=== PATIENT | female | born 1950 | race Caucasian/White ===

== ENCOUNTER 2017-10-01 21:19 | Emergency (ER) | payer MEDICARE, BC ==
[2017-10-01] MEDS ORDERED: ONDANSETRON HCL INJ/PF 4 MG/2 ML SDV IV ONE (23:39)
[2017-10-01] MEDS ORDERED: MORPHINE SULFATE 10 MG/ML INJ IV ONE (23:39)
--- NOTE | 2017-10-01 23:44 | ER Document Report ---
ED Neck/Back Problem - General Chief Complaint: Back Pain Stated Complaint: FALL/BACK PAIN Time Seen by Provider: 10/01/17 23:18 Mode of Arrival: Ambulatory Information source: Patient TRAVEL OUTSIDE OF THE [place] IN LAST 30 DAYS: No - HPI Patient complains to provider of: Pain, Lower back Onset: Just prior to arrival Where: Indoors Notes: The patient is here with complaints of right upper and lower back pain as well as lumbar pain. Patient states that she was in a shower in a hotel in [facility] while traveling down here to [place] to visit her daughter this morning. When she turned to grab her shampoo she lost her footing and fell out of the shower hitting her right side on the toilet and then falling to the floor. She denies striking her head. She denies any loss of consciousness. She is not on blood thinners. She is complaining of right upper and lower back pain. She denies any numbness, tingling, weakness to the lower extremities. She denies any bowel or bladder dysfunction. She is not on blood thinning medications. She denies any blurred or loss vision. She denies any abdominal pain. She denies any nausea, vomiting, diarrhea. Pain is worse with any sort of movement. She has difficulty finding a comfortable position due to her back pain. She denies seeing any blood in her urine. She has no other complaints or other injuries at this time. Past Medical History - Social History Smoking Status: Unknown if Ever Smoked Family History: Reviewed & Not Pertinent Patient has suicidal ideation: No Patient has homicidal ideation: No Renal/ Medical History: Denies: Hx Peritoneal Dialysis Review of Systems - Review of Systems -: Yes All other systems reviewed and negative Physical Exam - Vital signs Vitals: Temp Pulse Resp BP Pulse Ox 97.7 F 80 16 130/66 H 97 10/01/17 21:30 10/01/17 21:30 10/01/17 21:30 10/01/17 21:30 10/01/17 21:30 - Notes Notes: GENERAL: alert, cooperative, nontoxic, no distress. HEAD: normocephalic, atraumatic EYES: conjunctiva pink without discharge, no external redness or swelling. PERRL , EOM'S INTACT EARS: no external swelling, no external redness. No hemotympanum EM NOSE: atraumatic, no external swelling. No bleeding MOUTH/THROAT: mucous membranes moist and pink, posterior pharynx without erythema, swelling, exudate. No trismus or drooling. NECK: soft, supple, full range of motion, no meningismus. No midline tenderness step-offs or crepitus to palpation of the cervical spine. CHEST: no distress, lungs clear and equal throughout. No wheezing, rales, rhonchi. CARDIAC: regular rate and rhythm, no murmur, normal capillary refill, normal pulses. No peripheral edema noted. ABDOMEN: Soft, mild tenderness to the right mid abdomen. No ecchymosis or crepitus. BACK: No CVA tenderness. Tenderness to the right mid as well as lower back with no ecchymosis or abrasions noted. Mild lumbar midline tenderness to palpation. Mild tenderness to the right SI joint. Slightly limited range of motion secondary to pain. EXTREMITIES: full range of motion of all extremities. No redness, no swelling. NEURO: alert and oriented x 3, no focal deficits, full range of motion of all extremities. Cranial nerves II through XII are grossly intact. Reflexes are normal bilaterally. Normal sensation bilaterally. Normal strength bilaterally. PYSCH: appropriate mood, affect. Patient is cooperative. SKIN: pink, warm, dry, no rash. Course - Re-evaluation Re-evalutation: 10/02/17 02:33 The patient is nontoxic appearing with stable vitals. The patient slipped in the shower and fell on her right lower back and is now having a lot of pain in this area. No bowel or bladder dysfunction. She has a normal neurological exam. She had some mild tenderness to the right side of her abdomen and flank area. For this reason labs and urine and CT abdomen pelvis were ordered. This also help us better evaluate her lumbar spine. Lab work is unremarkable aside from signs of urinary tract infection. CT of the abdomen and pelvis shows right L1 through 3 transverse process fractures. There is also an indeterminate nodule in the right lung base that needs further evaluation at a later date. Patient will be informed of this finding and the need to have this reevaluated as an outpatient. This point the patient has a benign exam with no sign of cauda equina, epidural abscess/bleed. Her pain and exam is consistent with her transverse process fractures. Her pain is under control at this time, and the patient can be discharged home. She will be given Le Mars as well as Zanaflex. Follow-up with her doctor when she gets back home for reevaluation. Follow-up sooner for increasing pain, high fever, persistent vomiting, or for any further concerns. The patient is noted to have elevated blood pressure during today's emergency department visit. The patient was informed of this finding. The patient was instructed that this may be related to pre-hypertension and requires further evaluation with a primary care provider. The patient has no hypertensive symptoms at this time. The patient's emergency department workup and current diagnosis were explained to the patient and or family. Follow-up instructions were provided. Medications if prescribed were discussed. Instructions for when to return to the emergency department including specific worrisome symptoms were discussed with the patient and/or family. - Vital Signs Vital signs: Temp Pulse Resp BP Pulse Ox 97.7 F 80 16 130/66 H 97 10/01/17 21:30 10/01/17 21:30 10/01/17 21:30 10/01/17 21:30 10/01/17 21:30 - Laboratory Result Diagrams: 10/01/17 23:50 10/01/17 23:50 Laboratory results interpreted by me: 10/01/17 10/01/17 10/01/17 23:40 23:50 23:50 WBC 13.1 H Est GFR (Non-Af Amer) 54 L Total Bilirubin 0.1 L Ur Leukocyte Esterase LARGE H - Diagnostic Test Radiology reviewed: Image reviewed, Reports reviewed - CT of the abdomen and pelvis with IV contrast shows diverticulosis without diverticulitis, an indeterminate right lung nodule, right L1 through 3 transverse process fractures. Discharge - Discharge Clinical Impression: Lumbar transverse process fracture Qualifiers: Encounter type: initial encounter Fracture type: closed Qualified Code(s): S32.009A - Unspecified fracture of unspecified lumbar vertebra, initial encounter for closed fracture Condition: Stable Disposition: HOME, SELF-CARE Instructions: Transverse Process Fracture ([facility]) Additional Instructions: You are noted to have a transverse process fracture of the right L1, 2, [address] also shows an indeterminate nodule in the base of your right lung which needs further evaluation by her primary care doctor with a CT of your chest. Appears that you have a urinary tract infection, he will be prescribed antibiotics for this. Follow-up with your doctor at the next available appointment. Follow-up sooner for increasing pain, high fever, difficulty controlling her bowels or bladder, persistent vomiting, difficulty breathing, or for any further concerns. Your blood pressure was elevated during today's visit. Have this rechecked with your doctor. The medication you were prescribed today may cause drowsiness. Do not drive or operate heavy machinery while taking this medication. Prescriptions: Hydrocodone/Acetaminophen [(ER) Le Mars 5-325 mg Tabs #6 ER Disp] 1 - 2 tab PO Q6H PRN #6 dspk PRN Reason: Hydrocodone/Acetaminophen [Le Mars 5-325 mg Tablet] 2 tab PO Q6H PRN #15 tab PRN Reason: Tizanidine HCl [Zanaflex 4 Mg Tablet] 4 mg PO BID PRN #10 tablet PRN Reason: Forms: Elevated Blood Pressure, Smoking Cessation Education
[2017-10-01] MEDS ORDERED: HYDROMORPHONE HCL INJ/PF 2 MG/ML AMPULE IV ONE (23:45)
[2017-10-02 00:11] LABS: AMORPHOUS SEDIMENT,URINE TRACE /HPF; APPEARANCE,URINE CLOUDY; BILIRUBIN,URINE NEGATIVE (NEGATIVE); COLOR,URINE YELLOW; GLUCOSE, URINE NEGATIVE (NEGATIVE); KETONES,URINE NEGATIVE (NEGATIVE); LEUKOCYTE ESTERASE,URINE LARGE (NEGATIVE); NITRITE,URINE NEGATIVE (NEGATIVE); PROTEIN,URINE NEGATIVE (NEGATIVE); URINE SPECIFIC GRAVITY 1.029; UROBILINOGEN,URINE NEGATIVE mg/dL (<2.0)
[2017-10-02 00:16] LABS: ABSOLUTE EOSINOPHILS # (AUTO) 0.2 10^3/uL (0.0-0.6); ABSOLUTE LYMPHOCYTES (AUTO) 4.3 10^3/uL (0.5-4.7); ABSOLUTE MONOCYTES (AUTO) 0.9 10^3/uL (0.1-1.4); ABSOLUTE NEUT (AUTO) 7.6 10^3/uL (1.7-8.2); BASOPHILS % (AUTO) 0.3 % (0-2); EOSINOPHILS % (AUTO) 1.4 % (0-6); HEMATOCRIT 36.9 % (36.0-47.0); HEMOGLOBIN 12.3 g/dL (12.0-15.5); LYMPHOCYTES % (AUTO) 32.9 % (13-45); MEAN CORPUSCULAR HEMOGLOBIN 29.2 pg (27.0-33.4); MEAN CORPUSCULAR HGB CONC 33.5 g/dL (32.0-36.0); MEAN CORPUSCULAR VOLUME 87 fl (80-97); MONOCYTES % (AUTO) 7.1 % (3-13); PLATELET COUNT 390 10^3/uL (150-450); RED BLOOD COUNT 4.22 10^6/uL (3.72-5.28); RED CELL DISTRIBUTION WIDTH 13.1 % (11.5-14.0); SEGMENTED NEUTROPHILS % (AUTO) 58.3 % (42-78); TOTAL CELLS COUNTED % (AUTO) 100 %; WHITE BLOOD COUNT 13.1 10^3/uL (4.0-10.5)
[2017-10-02 00:32] LABS: ALANINE AMINOTRANSFERASE 36 U/L (9-52); ALBUMIN 4.5 g/dL (3.5-5.0); ALKALINE PHOSPHATASE 105 U/L (38-126); ANION GAP 13 (5-19); ASPARTATE AMINO TRANSFERASE 22 U/L (14-36); BILIRUBIN,DIRECT 0.1 mg/dL (0.0-0.4); BILIRUBIN,TOTAL 0.1 mg/dL (0.2-1.3); BLOOD UREA NITROGEN 13 mg/dL (7-20); CALCIUM 9.6 mg/dL (8.4-10.2); CARBON DIOXIDE 26 mmol/L (22-30); CHLORIDE 103 mmol/L (98-107); GLUCOSE 85 mg/dL (75-110); POTASSIUM 4.1 mmol/L (3.6-5.0); SODIUM 141.7 mmol/L (137-145); TOTAL PROTEIN 6.7 g/dL (6.3-8.2)
--- NOTE | 2017-10-02 01:18 | RADIOLOGY REPORT (SQ) ---
EXAM DESCRIPTION: CT ABDOMEN AND PELVIS WITH CONTRAST CLINICAL HISTORY: FALL, RIGHT FLANK AND LOW BACK PAIN-BONE REFORMATS COMPARISON: None Available. TECHNIQUE: CT of the abdomen and pelvis are performed during IV bolus administration of 100 mL of Isovue-370. DLP: 2226.93 mGycm FINDINGS: Abdomen: The liver has normal size and decreased density. No intrahepatic mass or biliary dilatation. Prior cholecystectomy. The spleen, pancreas, and adrenal glands are unremarkable. No hydronephrosis or obstructing calculi. Punctate nonobstructing right renal calculus. Bosniak class I right renal cyst. Aortoiliac atherosclerosis. IVC is unremarkable. The portal vein patent. The proximal visceral and renal arteries are patent. No free intraperitoneal air. Eventration of the right hemidiaphragm. The stomach and duodenum have normal course. Pelvis: Prior hysterectomy. Urinary bladder is unremarkable. No free pelvic fluid or lymphadenopathy. Scattered diverticula throughout the colon without pericolic fat stranding. No evidence of appendicitis. Discoid atelectasis or scarring in the lung bases bilaterally. In the right lung base there is a 0.5 cm solid indeterminate pulmonary nodule. No destructive bone lesions identified. Nondisplaced fractures of the right first through third lumbar transverse processes. Vertebral body height preserved. No involvement of the facets or vertebral bodies. Degenerative change of the spine. No fractures of the visualized right-sided ribs. IMPRESSION: 1. Acute nondisplaced fractures of the right L1-L3 transverse processes. 2. Diverticulosis without evidence of diverticulitis. 3. There is a 0.5 cm indeterminate pulmonary nodule in the right lung base. Dedicated CT of the chest recommended for complete evaluation. This exam was performed according to our departmental dose-optimization program, which includes automated exposure control, adjustment of the mA and/or kV according to patient size and/or use of iterative reconstruction technique.
[2017-10-02] MEDS ORDERED: HYDROCODONE/ACETAMINOPHEN 5-325 MG (6 TAB/ER DISP) PO PRN (02:38)
[2017-10-02 02:51] VITALS: BP 124/63
== END 2017-10-02 03:00 | disposition home or self-care (01) ==
LOC: ER 21:19
DX: S32.009A Unspecified fracture of unspecified lumbar vertebra, initial encounter for closed fracture (principal); M54.6 Pain in thoracic spine; M54.5 Low back pain; N39.0 Urinary tract infection, site not specified; W18.2XXA Fall in (into) shower or empty bathtub, initial encounter
CPT/HCPCS: 99284; 96374; 96375; 36415; 83690; 85025; 80053; 81001; 74177; J1170; J2405; A9270